=== PATIENT | male | born 1945 | race Caucasian/White ===

== ENCOUNTER 2019-09-22 20:46 | Emergency (ER) | payer MEDICARE ==
[~2019-09-22] VITALS: Ht 182.9 cm; Wt 108.9 kg
[~2019-09-22 20:46] MED LIST: CIPROFLOXACIN; ECOTRIN81 MG PO; FINASTERIDE5 MG PO; FLOMAX; FUROSEMIDE40 MG PO; HYDROCODONE; HYZAAR 50-12.51 EACH PO; INDAPAMIDE PO; LISINOPRIL PO; MICARDIS; TAMULOSIN
--- NOTE | 2019-09-22 21:36 | Emergency Department Note ---
History of Present Illnes History of Present Illness Chief Complaint: Abdominal Complaints History of Present Illness This is a 73 year old male presents with c/o left back pain and blood in urine that started about 4 hours ago, no n/v/d . Historian: Patient Arrival Mode: Car Onset (how long ago): hour(s) (4) Location: left back Quality: pain Radiation: non-radiation Severity: mild Onset quality: sudden Duration (how long): hour(s) (4) Progression: waxing and waning Chronicity: new Context: recent illness Exacerbating factors: none Associated symptoms: denies other symptoms Treatments prior to arrival: none Past Medical/Family History Physician Review I have reviewed the patient's past medical and family history. Any updates have been documented here. Past Medical History Recent Fever: No Clinical Suspicion of Infectio: No New/Unexplained Change in Ment: No Past Medical History: Hypertension Other Medical History: ENLARGED PROSTATE GOUT DEMENTIA Other Surgery: turpVASECTOMY BLADDER/PROSTATE SURGERY FOR TUMOR REMOVAL Social History Smoking Cessation: Former smoker Alcohol Use: None Any Illegal Drug Use: No Other Last Tetanus: OOD Review of Systems Review of Systems Constitutional: no symptoms EENTM: no symptoms Cardiovascular: no symptoms Respiratory: no symptoms Gastrointestinal: no symptoms Genitourinary: as per HPI Musculoskeletal: as per HPI Neurological: no symptoms Psychological: no symptoms Endocrine: no symptoms Hematological/Lymphatic: no symptoms Review of other systems All other systems reviewed and negative. Physical Exam Related Data Allergies: Coded Allergies: No Known Allergies (Unverified , 02/07/11) Triage Vital Signs Vital Signs Date Time Temp Pulse Resp B/P (MAP) Pulse Ox O2 Delivery O2 Flow Rate FiO2 09/22/19 21:18 98.3 97 20 161/103 98 Vital signs reviewed: Yes Physical Exam CONSTITUTIONAL Constitutional: well-developed, well-nourished HENT HENT: normocephalic, atraumatic, oropharynx clear/moist, nose normal HENT L/R: left ext ear normal, right ext ear normal EYES Eyes: PERRL, conjunctivae normal NECK Neck: ROM normal PULMONARY Pulmonary: effort normal, breath sounds normal CARDIOVASCULAR Cardiovascular: regular rhythm, heart sounds normal, capillary refill normal, normal rate GASTROINTESTINAL Abdominal: soft, nontender, bowel sounds normal GENITOURINARY Genitourinary: exam deferred SKIN Skin: warm, dry MUSCULOSKELETAL Musculoskeletal: ROM normal NEUROLOGICAL Neurological: alert, oriented x 3, no gross motor or sensory deficits PSYCHOLOGICAL Psychological: mood/affect normal, judgement normal Results Laboratory Laboratory Laboratory Tests Test 09/22/19 21:30 White Blood Count 8.49 x10e3/uL (4.8-10.8) Red Blood Count 5.40 x10e6/uL (4.3-5.7) Hemoglobin 16.3 g/dL (14.0-18.0) Hematocrit 47.7 % (38.2-49.6) Mean Corpuscular Volume 88.3 fL (81-99) Mean Corpuscular Hemoglobin 30.2 pg (28-32) Mean Corpuscular Hemoglobin Concent 34.2 g/dL (31-35) Red Cell Distribution Width 13.0 % (11.7-14.4) Platelet Count 217 x10e3/uL (140-360) Neutrophils (%) (Auto) 65.1 % (38.7-80.0) Lymphocytes (%) (Auto) 21.2 % (18.0-39.1) Monocytes (%) (Auto) 10.4 % (4.4-11.3) Eosinophils (%) (Auto) 2.5 % (0.0-6.0) Basophils (%) (Auto) 0.4 % (0.0-1.0) Neutrophils # (Auto) 5.5 (2.1-6.9) Lymphocytes # (Auto) 1.8 (1.0-3.2) Monocytes # (Auto) 0.9 (0.2-0.8) Eosinophils # (Auto) 0.2 (0.0-0.4) Basophils # (Auto) 0.0 (0.0-0.1) Absolute Immature Granulocyte (auto 0.03 x10e3/uL (0-0.1) Urine Color Brown (YELLOW) Urine Clarity Cloudy (CLEAR) Urine pH 6 (5 - 7) Urine Specific [place] 1.025 (1.010-1.025) Urine Protein 2+ (NEGATIVE) Urine Glucose (UA) Negative (NEGATIVE) Urine Ketones Trace (NEGATIVE) Urine Blood Large (NEGATIVE) Urine Nitrite Negative (NEGATIVE) Urine Bilirubin Small (NEGATIVE) Urine Urobilinogen 4 mg/dL (0.2 - 1) Urine Leukocyte Esterase Negative (NEGATIVE) Urine RBC >50 /HPF (0-5) Urine WBC 6-10 /HPF (0-5) Urine Epithelial Cells Few /LPF (NONE) Urine Bacteria Many /HPF (NONE) Sodium Level 141 mmol/L (136-145) Potassium Level 3.5 mmol/L (3.5-5.1) Chloride Level 106 mmol/L (98-107) Carbon Dioxide Level 22 mmol/L (22-29) Anion Gap 16.5 mmol/L (8-16) Blood Urea Nitrogen 19 mg/dL (7-26) Creatinine 1.19 mg/dL (0.72-1.25) Estimat Glomerular Filtration Rate 60 ML/MIN (60-) BUN/Creatinine Ratio 16 (6-25) Glucose Level 169 mg/dL (74-118) Calcium Level 10.1 mg/dL (8.4-10.2) Lab results reviewed: Yes Imaging Impressions IMPRESSION: 1. A 2 mm obstructive calculus in the proximal left ureter with minimal left hydronephrosis. 2. Triple vessel coronary artery calcific atherosclerosis. 3. Ascending aortic ectasia, 4.4 cm in diameter. 4. Fibrotic changes in the lung bases and mild pulmonary emphysema. Signed by: Chang Spangler DO on 09/22/2019 11:34 PM Critical Care Time Subsequent provider I assumed direction of critical care for this patient from another provider of my specialty. Assessment & Plan Assessment & Plan Final Impression: (1) Ureterolithiasis (2) Hematuria Assessment & Plan pt with let flank pain and hematuria, cbc, bmp, ua, ct abd/pelvis to eval for kidney stone, renal mass, hematuria, uti, renal insufficiency found to have a 2mm stone left proximal ureter pt discharged to follow up with dr pili samuel following scripts given to pt toradol 10 mg po q 6 hours prn pain #10 tramadol 50 mg po q 6 hours prn pain #15 flomax 0,.4 mgpo daily #7 keflex 500 mg po tid #30 zofran 0dt 4mg 1 sl q 6 hours prn nausea #30 Depart Disposition: HOME, SELF-CARE Last Vital Signs Date Time Temp Pulse Resp B/P (MAP) Pulse Ox O2 Delivery O2 Flow Rate FiO2 09/22/19 21:18 98.3 97 20 161/103 98 Home Meds Reported Medications Aspirin (ECOTRIN) 81 Mg Tablet., 81 MG PO DAILY 11/30/15 Furosemide (FUROSEMIDE) 40 Mg Tablet, 40 MG PO Daily, #30 TAB 11/30/15 Finasteride (FINASTERIDE) 5 Mg Tablet, 5 MG PO DAILY, #30 TAB 11/30/15 Losartan/Hydrochlorothiazide (HYZAAR 50-12.5 TABLET) 1 Each Tablet, 1 TAB PO DAILY 11/30/15 [Indapamide] No Conflict Check, 2.5 MG PO DAILY 12/02/10 [Lisinopril] No Conflict Check, 40 MG PO DAILY 12/02/10 SUMEET GALVIN MD September 22, 2019 21:36
[2019-09-22 21:39] LABS: BASOPHILS % 0.4 % (0.0-1.0); EOSINOPHILS # (AUTO) 0.2 (0.0-0.4); EOSINOPHILS % 2.5 % (0.0-6.0); HEMATOCRIT 47.7 % (38.2-49.6); HEMOGLOBIN 16.3 g/dL (14.0-18.0); LYMPHOCYTES # (AUTO) 1.8 (1.0-3.2); LYMPHOCYTES % 21.2 % (18.0-39.1); MEAN CORPUSCULAR HEMOGLOBIN 30.2 pg (28-32); MEAN CORPUSCULAR HGB CONC 34.2 g/dL (31-35); MEAN CORPUSCULAR VOLUME 88.3 fL (81-99); MONOCYTES # (AUTO) 0.9 (0.2-0.8); MONOCYTES % 10.4 % (4.4-11.3); NEUTROPHILS # (AUTO) 5.5 (2.1-6.9); NEUTROPHILS % 65.1 % (38.7-80.0); PLATELET COUNT 217 x10e3/uL (140-360)
[2019-09-22 21:55] LABS: ANION GAP 16.5 mmol/L (8-16); CALCIUM 10.1 mg/dL (8.4-10.2); CREATININE, SERUM 1.19 mg/dL (0.72-1.25); POTASSIUM 3.5 mmol/L (3.5-5.1)
[2019-09-22 22:20] LABS: CLARITY,URINE CLOUDY (CLEAR); COLOR,URINE BROWN (YELLOW)
[2019-09-22 22:21] LABS: BILIRUBIN,URINE SMALL (NEGATIVE); KETONES,URINE TRACE (NEGATIVE); LEUKOCYTE ESTERASE ,URINE NEGATIVE (NEGATIVE); NITRITE,URINE NEGATIVE (NEGATIVE); PROTEIN,URINE DIPSTICK 2+ (NEGATIVE); URINE UROBILINOGEN 4 mg/dL (0.2 - 1)
[2019-09-22 22:29] LABS: BACTERIA,URINE MANY /HPF; RBC,URINE >50 /HPF (0-5)
[2019-09-22 22:30] LABS: EPITHELIAL CELLS,URINE FEW /LPF
--- NOTE | 2019-09-22 23:37 | Diagnostic Imaging Report ---
EXAM: CT Abdomen and Pelvis WITHOUT contrast INDICATION: Left flank pain COMPARISON: None. TECHNIQUE: Abdomen and pelvis were scanned utilizing a multidetector helical scanner from the lung base to the pubic symphysis without administration of IV contrast. Absence of intravenous contrast decreases sensitivity for detection of focal lesions and vascular pathology. Coronal and sagittal reformations were obtained. Routine protocol was performed. IV CONTRAST: None ORAL CONTRAST: None COMPLICATIONS: None RADIATION DOSE: Total DLP: 829 mGy*cm Estimated effective dose: (DLP x 0.015 x size factor) mSv CTDIvol has been reviewed. It is below the limits set by the Radiation Protocol Committee (RPC). Dose modulation, iterative reconstruction, and/or weight based adjustment of the mA/kV was utilized to reduce the radiation dose to as low as reasonably achievable. FINDINGS: LINES and TUBES: None. LOWER THORAX: Mild pulmonary emphysematous changes. Left basilar reticular opacities triple vessel coronary artery calcific atherosclerosis. Ascending aortic ectasia, 4.4 cm in diameter. HEPATOBILIARY: No focal hepatic lesions. No biliary ductal dilation. GALLBLADDER: No radio-opaque stones or sludge. No wall thickening. SPLEEN: No splenomegaly. PANCREAS: No focal masses or ductal dilatation. ADRENALS: No adrenal nodules KIDNEYS/URETERS: No hydronephrosis. No solid mass lesions. No stones. Asymmetric left perinephric fat stranding. 2 mm calculus in the proximal left ureter (series 3 image 102). A 2.3 cm exophytic simple appearing cysts in the right renal inferior pole. GI TRACT: No abnormal distention, wall thickening, or evidence of bowel obstruction. No appendicitis. PELVIC ORGANS/BLADDER: Mild prostatomegaly. Urinary bladder under distended but otherwise unremarkable. LYMPH NODES: No lymphadenopathy. VESSELS: Arterial vascular calcifications. PERITONEUM / RETROPERITONEUM: No free air or fluid. BONES: There are degenerative changes in the spine. SOFT TISSUES: There is a fat containing para-umbilical hernia and bilateral fat-containing inguinal hernias. IMPRESSION: 1. A 2 mm obstructive calculus in the proximal left ureter with minimal left hydronephrosis. 2. Triple vessel coronary artery calcific atherosclerosis. 3. Ascending aortic ectasia, 4.4 cm in diameter. 4. Fibrotic changes in the lung bases and mild pulmonary emphysema. Signed by: Chang Spangler DO on 09/22/2019 11:34 PM
[2019-09-22] MEDS ORDERED: KETOROLAC TROMETHAMINE 30 MG/ML VIAL IV STA (23:41)
[2019-09-23] VITALS: BP 163/98
== END 2019-09-23 00:05 | disposition home or self-care (01) ==
LOC: ER 20:46
DX: M54.5 Low back pain (principal); R31.9 Hematuria, unspecified; N20.1 Calculus of ureter; N28.1 Cyst of kidney, acquired; I71.2 Thoracic aortic aneurysm, without rupture
CPT/HCPCS: 36415; 74176; 80048; 81001; 85025; 99284; J1885

== ENCOUNTER 2020-07-21 22:55 | Emergency (ER) | payer MEDICARE ==
[~2020-07-21] VITALS: Ht 182.9 cm; Wt 108.9 kg
[2020-07-21] MEDS ORDERED: ASPIRIN 81 MG CHEW TAB PO ONE (23:15)
[2020-07-21] MEDS ORDERED: SODIUM CHLORIDE 0.9% 1000ML 1,000 ML IV STA (23:33)
[2020-07-21] MEDS ORDERED: ONDANSETRON HCL INJ 2MG/ML 2ML 2 MG/ML VIAL IV STA (23:33)
[2020-07-21] MEDS ORDERED: KETOROLAC TROMETHAMINE 30 MG/ML VIAL IV STA (23:33)
[2020-07-21 23:37] LABS: BASOPHILS # (AUTO) 0.1 (0.0-0.1); BASOPHILS % 0.5 % (0.0-1.0); EOSINOPHILS # (AUTO) 0.2 (0.0-0.4); HEMOGLOBIN 15.4 g/dL (14.0-18.0); LYMPHOCYTES # (AUTO) 1.6 (1.0-3.2); LYMPHOCYTES % 15.5 % (18.0-39.1); MEAN CORPUSCULAR HEMOGLOBIN 30.4 pg (28-32); MEAN CORPUSCULAR HGB CONC 34.2 g/dL (31-35); MEAN CORPUSCULAR VOLUME 88.9 fL (81-99); MONOCYTES # (AUTO) 1.2 (0.2-0.8); MONOCYTES % 11.3 % (4.4-11.3); NEUTROPHILS # (AUTO) 7.4 (2.1-6.9); NEUTROPHILS % 70.3 % (38.7-80.0); PLATELET COUNT 193 x10e3/uL (140-360); RED BLOOD COUNT 5.06 x10e6/uL (4.3-5.7); RED CELL DISTRIBUTION WIDTH 13.1 % (11.7-14.4)
[2020-07-21 23:39] LABS: CLARITY,URINE CLOUDY (CLEAR); COLOR,URINE BROWN (YELLOW); KETONES,URINE TRACE (NEGATIVE); LEUKOCYTE ESTERASE ,URINE NEGATIVE (NEGATIVE); NITRITE,URINE NEGATIVE (NEGATIVE); PROTEIN,URINE DIPSTICK >=300 (NEGATIVE); URINE UROBILINOGEN 1 mg/dL (0.2 - 1)
[2020-07-21 23:45] LABS: AMORPHOUS SEDIMENT,URINE FEW (FEW); BACTERIA,URINE MODERATE /HPF; EPITHELIAL CELLS,URINE FEW /LPF; RBC,URINE >50 /HPF (0-5)
[2020-07-21 23:55] LABS: ALBUMIN 3.9 g/dL (3.5-5.0); ALBUMIN/GLOBULIN RATIO 1.4 (0.8-2.0); CALCIUM 9.6 mg/dL (8.4-10.2); CREATININE, SERUM 1.47 mg/dL (0.72-1.25)
[2020-07-22 00:02] LABS: CREATINE KINASE MB 13.2 ng/mL (0-5.0)
[2020-07-22] MEDS ORDERED: MORPHINE SULFATE INJ 4 MG/ML INJ 1ML IV STA (00:52)
[2020-07-22] MEDS ORDERED: TYLENOL # 31 EA PO (03:32)
[2020-07-22] MEDS ORDERED: ZOFRAN4 MG SL (03:32)
[2020-07-22] MEDS ORDERED: FLOMAX0.4 MG PO (03:32)
[2020-07-22 04:54] VITALS: BP 156/71
== END 2020-07-22 04:50 | disposition home or self-care (01) ==
LOC: ER 23:08
DX: M54.5 Low back pain (principal); R31.9 Hematuria, unspecified; N13.2 Hydronephrosis with renal and ureteral calculous obstruction; N50.811 Right testicular pain; R11.0 Nausea; I77.810 Thoracic aortic ectasia; F03.90 Unspecified dementia, unspecified severity, without behavioral disturbance, psychotic disturbance, mood disturbance, and anxiety; I10 Essential (primary) hypertension; M10.9 Gout, unspecified
CPT/HCPCS: 36415; 74176; 80053; 81001; 82550; 82553; 83690; 84484; 85025; 87086; 99284; J2270; J2405; J7030

== ENCOUNTER 2022-10-05 18:16 | Emergency (ER) | payer MEDICARE ==
[~2022-10-05] VITALS: Ht 172.7 cm; Wt 94.3 kg
[~2022-10-05 18:16] MED LIST changes: +FLOMAX0.4 MG PO; +TYLENOL # 31 EA PO; +ZOFRAN4 MG SL
[2022-10-05 19:16] LABS: BASOPHILS % 0.4 % (0.0-1.0); EOSINOPHILS # (AUTO) 0.3 (0.0-0.4); EOSINOPHILS % 3.4 % (0.0-6.0); HEMATOCRIT 44.3 % (38.2-49.6); HEMOGLOBIN 15.4 g/dL (14.0-18.0); LYMPHOCYTES # (AUTO) 2.2 (1.0-3.2); LYMPHOCYTES % 21.7 % (18.0-39.1); MEAN CORPUSCULAR HEMOGLOBIN 30.3 pg (28-32); MEAN CORPUSCULAR HGB CONC 34.8 g/dL (31-35); MONOCYTES # (AUTO) 1.6 (0.2-0.8); MONOCYTES % 16.1 % (4.4-11.3); NEUTROPHILS # (AUTO) 5.8 (2.1-6.9); PLATELET COUNT 211 x10e3/uL (140-360); RED BLOOD COUNT 5.09 x10e6/uL (4.3-5.7); RED CELL DISTRIBUTION WIDTH 12.9 % (11.7-14.4)
[2022-10-05 19:32] LABS: ANION GAP 14.2 mmol/L (8-16); CALCIUM 10.2 mg/dL (8.4-10.2); CREATININE, SERUM 2.62 mg/dL (0.72-1.25); POTASSIUM 3.2 mmol/L (3.5-5.1)
[2022-10-05 20:59] LABS: CLARITY,URINE CLEAR (CLEAR); COLOR,URINE YELLOW (YELLOW); KETONES,URINE NEGATIVE (NEGATIVE); LEUKOCYTE ESTERASE ,URINE NEGATIVE (NEGATIVE); NITRITE,URINE NEGATIVE (NEGATIVE); PROTEIN,URINE DIPSTICK NEGATIVE (NEGATIVE); WBC,URINE (MAN) 0-5 /HPF (0-5)
[2022-10-05 21:23] VITALS: BP 139/83; PULSE 57; RESP 17; TEMP 98.3; O2SAT 100
[2022-10-05] MEDS ORDERED: CEPHALEXIN500 MG PO (21:30)
[2022-10-05] MEDS ORDERED: ACETAMINOPHEN-1 EAC4 PO (21:30)
== END 2022-10-05 22:00 | disposition home or self-care (01) ==
LOC: ER 18:30
DX: R31.9 Hematuria, unspecified (principal); I12.9 Hypertensive chronic kidney disease with stage 1 through stage 4 chronic kidney disease, or unspecified chronic kidney disease; N18.9 Chronic kidney disease, unspecified; N13.2 Hydronephrosis with renal and ureteral calculous obstruction; K57.90 Diverticulosis of intestine, part unspecified, without perforation or abscess without bleeding; I10 Essential (primary) hypertension; F03.90 Unspecified dementia, unspecified severity, without behavioral disturbance, psychotic disturbance, mood disturbance, and anxiety; N40.0 Benign prostatic hyperplasia without lower urinary tract symptoms; M10.9 Gout, unspecified; K40.20 Bilateral inguinal hernia, without obstruction or gangrene, not specified as recurrent; F17.210 Nicotine dependence, cigarettes, uncomplicated
CPT/HCPCS: 36415; 74176; 80048; 81001; 85025; 99284